=== PATIENT | male | born 1965 | race African-American/Black ===

== ENCOUNTER 2020-10-13 01:35 | Emergency (ER) | payer MEDICARE, OTHER ==
[~2020-10-13] VITALS: Ht 182.9 cm; Wt 67.9 kg
[2020-10-13 01:45] VITALS: BP 117/90
--- NOTE | 2020-10-13 01:50 | PHYS DOC ---
Past History Past Medical History: Arthritis General Adult EDM: Chief Complaint: HAND PROBLEM HPI: HPI: ",, I think .. I got a flare of my gout... Reduced in town to visit family a few more days... I used to get my knees and they did need taps.. 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 Patient has woody edema and this destruction of phalange joints first, second and third fingers. Patient is right-hand dominant however. Patient has had periodic flares for years. Has also had flares of knee edema and pain which were tapped to drain fluid. Reportedly these aspirations showed gout findings. Patient denies any specific history of immunosuppression. Has had increased meat diet while he was on vacation. Patient recently traveled from [facility] just outside of [place] to visit family here in [place]. Patient reportedly has driven here for the visit. Patient does follow-up with primary in [facility]. Patient has not had COVID vaccination. Plans to get COVID vaccination on return to [facility]. Review of Systems: Review of Systems: Constitutional: Denies fever or chills Eyes: Denies change in visual acuity HENT: Denies nasal congestion or sore throat Respiratory: Denies cough or shortness of breath Cardiovascular: Denies chest pain or edema GI: Denies abdominal pain, nausea, vomiting, bloody stools or diarrhea : Denies dysuria Musculoskeletal: Complaint left hand pain Integument: Denies rash Neurologic: Denies headache, focal weakness or sensory changes Endocrine: Denies polyuria or polydipsia Lymphatic: Denies swollen glands Psychiatric: Denies depression or anxiety Family History: Family History: Noncontributory to presentation Current Medications: Current Meds: See nursing for home meds Allergies: Allergies: No known drug allergies Physical Exam: PE: Constitutional: Moderate acute distress, non-toxic appearance. [] HENT: Normocephalic, atraumatic, bilateral external ears normal, oropharynx moist, no oral exudates, nose normal. [] Eyes: PERRLA, EOMI, conjunctiva normal, no discharge. [] Neck: Normal range of motion, no tenderness, supple, no stridor. [] Cardiovascular:Heart rate regular rhythm, no murmur [] Lungs & Thorax: Bilateral breath sounds equal apex on auscultation [] Abdomen: Bowel sounds normal, soft, no tenderness, no masses, no pulsatile masses. [] Skin: Warm, dry, no erythema, no rash. [] Back: No tenderness, no CVA tenderness. [] Extremities: No tenderness, no cyanosis, no clubbing, ROM intact, no edema. Set findings in left hand as per HPI Neurologic: Alert and oriented X 3, normal motor function, normal sensory function, no focal deficits noted. [] Psychologic: Affect anxious , judgement normal, mood normal. [] EKG: EKG: [] Radiology/Procedures: Radiology/Procedures: My interpretation left hand film shows no acute fracture. Does have degenerative joint changes particularly of middle phalange joints 1 ,2 and 3. [] See formal report when available Heart Score: C/O Chest Pain: N/A Risk Factors: Risk Factors: DM, Current or recent (<one month) smoker, HTN, HLP, family h istory of CAD, obesity. Risk Scores: Score 0 - 3: 2.5% MACE over next 6 weeks - Discharge Home Score 4 - 6: 20.3% MACE over next 6 weeks - Admit for Clinical Observation Score 7 - 10: 72.7% MACE over next 6 weeks - Early Invasive Strategies Course & Med Decision Making: Course & Med Decision Making Pertinent Labs and Imaging studies reviewed. (See chart for details) Patient keep left hand warm. Patient take Tylenol and ibuprofen for pain. Patient take colchicine 0.6 mg every hour until relief of pain. Stop colchicine if you develop diarrhea. Take more no more than 10 tablets a day. Follow-up primary care. Take Keflex 500 mg 3 times a day. Keep follow-up primary care upon return to [facility]. Return if any concerns. Patient to reduce meat protein intake. Recommend patient get COVID vaccination upon returning to [facility]. Impression: 1. Possible gout flare versus pseudogout. Left hand. [] Dragon Disclaimer: Harry Disclaimer: This electronic medical record was generated, in whole or in part, using a voice recognition dictation system. Departure Departure: Referrals: PCP,NO (PCP) Scripts Colchicine (Colchicine) 0.6 Mg Tablet 0.6 MG PO every hour for Gout/pseudogout, #30 TAB Prov: MARY HEREDIA MD 10/13/20 Cephalexin (KEFLEX) 500 Mg Capsule 500 MG PO TID for Gout for 7 Days, #21 CAP Prov: MARY HEREDIA MD 10/13/20 Harry Disclaimer This chart was dictated in whole or in part using Voice Recognition software in a busy, high-work load, and often noisy Emergency Department environment. It may contain unintended and wholly unrecognized errors or omissions. Dragon Disclaimer This chart was dictated in whole or in part using Voice Recognition software in a busy, high-work load, and often noisy Emergency Department environment. It may contain unintended and wholly unrecognized errors or omissions. Dragon Disclaimer This chart was dictated in whole or in part using Voice Recognition software in a busy, high-work load, and often noisy Emergency Department environment. It may contain unintended and wholly unrecognized errors or omissions. MARY HEREDIA MD Oct 13, 2020 01:50
[2020-10-13] MEDS ORDERED: COLCHICINE 0.6 MG TABLET. ONE (02:11)
[2020-10-13] MEDS ORDERED: CEPH500C PO (02:15)
[2020-10-13] MEDS ORDERED: COLC0.6T45 PO (02:15)
[2020-10-13] MEDS ORDERED: CEPHALEXIN 250 MG CAPSULE PO ONE (02:30)
[2020-10-13] MEDS ORDERED: COLCHICINE 0.6 MG TABLET. PO ONE (02:30)
[2020-10-13] MEDS ORDERED: oxyCODONE/APAP 5/325 1 TAB TABLET PO ONE (02:30)
--- NOTE | 2020-10-13 03:27 | RAD ---
EXAM: XR HAND_LEFT 3 VIEWS 10/13/2020 2:04 AM CLINICAL INDICATION: Edema, pain COMPARISON: None TECHNIQUE: 3 views of the left hand FINDINGS: No acute fracture. Alignment is normal. There is mild degenerative joint disease at the se cond through fourth PIP and DIP joints. Possible juxta-articular erosion of the lateral aspect of the third proximal phalanx. Moderate articular soft tissue swelling at the third PIP joint and mild at t he second and fourth PIP joints. No opaque foreign body. Mild degenerative joint disease of the first MCP joint. IMPRESSION: 1. 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 2. Possible juxta articular erosion at the lateral aspect of the third proximal phalanx. 3. Soft tissue swelling of the second through fourth PIP joints, greatest at the third PIP joint wher e it is moderate. Electronically signed by: Latia Uriarte MD (10/13/2020 3:25 AM) [id number]
== END 2020-10-13 02:29 | disposition home or self-care (01) ==
LOC: ER 01:35
DX: M10.9 Gout, unspecified (principal)
CPT/HCPCS: 73130; 99284-25